=== PATIENT | female | born 1980 | race Caucasian/White ===

== ENCOUNTER 2017-03-26 08:21 | Day surgery (SDC) | payer OTHER ==
[~2017-03-26 08:21] MED LIST: LIDOCAINE HCL 1% MPF SOL ONE; PROPOFOL 500 MG/50 ML EMU IV ONE
[2017-03-26] MEDS ORDERED: KETOROLAC TROMETHAMINE 30 MG/ML SOL ONE (09:10)
[2017-03-26 10:37] VITALS: RESP 20; TEMP 97.5
[2017-03-26 10:41] VITALS: BP 126/86; PULSE 84; O2SAT 100
== END 2017-03-26 10:55 | disposition home or self-care (01) | DRG 392 ==
LOC: SURG 08:21
PROVIDERS: ATTEND Surgery
DX: K52.9 Noninfective gastroenteritis and colitis, unspecified (principal); D12.5 Benign neoplasm of sigmoid colon; K59.00 Constipation, unspecified; Z80.0 Family history of malignant neoplasm of digestive organs; Z83.71 Family history of colonic polyps; K63.5 Polyp of colon
CPT/HCPCS: J1885; J2001; J2704

== ENCOUNTER 2018-06-23 03:16 | Emergency (ER) | payer OTHER ==
[2018-06-23 03:16] VITALS: O2SAT 100
[2018-06-23 04:05] VITALS: BP 153/108; PULSE 92; RESP 12; TEMP 97
== END 2018-06-23 04:00 | disposition home or self-care (01) | DRG 696 ==
LOC: ED 03:16
DX: R33.9 Retention of urine, unspecified (principal)
CPT/HCPCS: 51798; 99282; 99283